=== PATIENT | male | born 1960 | race Caucasian/White ===

== ENCOUNTER 2022-03-08 17:32 | Emergency (ER) | payer SELFPAY ==
[~2022-03-08] VITALS: Ht 190.5 cm; Wt 104.3 kg
[2022-03-08 17:53] VITALS: BP 142/84
--- NOTE | 2022-03-08 17:55 | NUR ---
PT AMBULATED TO LOBBY
[2022-03-08] MEDS ORDERED: IBUP-2213 PO (19:27)
[2022-03-08] MEDS ORDERED: SULF-59 PO (19:27)
[2022-03-08] MEDS ORDERED: CEPH500C16 PO (19:31)
--- NOTE | 2022-03-08 20:22 | NUR ---
The patient's care was reviewed and supervised by Iavna Alves RN.
--- NOTE | 2022-03-08 20:22 | NUR ---
Patient discharged with v/s stable. Written and verbal after care instructions given and explained. Patient verbalized understanding. Ambulatory with steady gait. All questions addressed prior to discharge. Advised to follow up with PMD.
== END 2022-03-08 20:22 | disposition home or self-care (01) ==
LOC: MED 17:32
DX: L03.114 Cellulitis of left upper limb (principal)
CPT/HCPCS: 99283